=== PATIENT | female | born 1965 | race Caucasian/White ===

== ENCOUNTER 2016-06-22 23:20 | Emergency (ER) | payer BC ==
[~2016-06-22] VITALS: Ht 167.6 cm; Wt 86.2 kg
[2016-06-22 23:33] VITALS: BP 148/55
[2016-06-23] MEDS ORDERED: HYDR-971 PO (00:17)
--- NOTE | 2016-06-23 00:17 | PHYS DOC ---
Past Medical History Past Medical History: Depression, Other Additional Past Medical Histor: EPILIEPSY Past Surgical History: Appendectomy, Cholecystectomy, Tonsillectomy, Other Additional Past Surgical Histo: OOPHORECTOMY Alcohol Use: Occasionally Drug Use: None Adult General Chief Complaint Chief Complaint: ANKLE PROBLEM HPI HPI Patient is a 50 year old female who presents with moderate right ankle pain after falling into a hole today and rolling her ankle. Patient denies any loss of consciousness when she fell. She states she already took hydrocodone and a large bottle of wine prior to coming to the ED. Review of Systems Review of Systems Constitutional: Denies fever or chills [] Eyes: Denies change in visual acuity, redness, or eye pain [] Musculoskeletal: Right ankle pain Integument: Denies rash or skin lesions [] Neurologic: Denies headache, focal weakness or sensory changes [] Endocrine: Denies polyuria or polydipsia [] Physical Exam Physical Exam Constitutional: Well developed, well nourished, no acute distress, non-toxic appearance. [] Skin: See extremity Back: No tenderness, no CVA tenderness. [] Extremities: Right ankle with moderate amount of soft tissue swelling this patient on the right aspect. Tenderness on palpation of the right medial and lateral ankle. Limited range of motion to the right ankle due to pain. +2 right pedal pulse. Cap refill less than 2 seconds the right lower extremity. Sensation intact to the right lower extremity. Neurologic: Alert and oriented X 3, normal motor function, normal sensory function, no focal deficits noted. [] Psychologic: Affect normal, judgement normal, mood normal. [] Current Patient Data Vital Signs Vital Signs Date Time Temp Pulse Resp B/P Pulse Ox O2 Delivery O2 Flow Rate FiO2 06/22/16 23:33 97.7 84 18 97 Room Air 97.7 EKG EKG [] Radiology/Procedures Radiology/Procedures [] Course & Med Decision Making Course & Med Decision Making Pertinent Labs and Imaging studies reviewed. (See chart for details) Patient is in the ED with right ankle pain after falling into a hole and twisting the ankle. Right ankle x-rays and tib-fib x-rays interpreted by Dr. Mclean are positive for tib/fib fractures. Patient was placed in a stirrup splint by the biological lab technician. Neurovascular exam done by me is normal, cap refill less than 2 seconds. Provided crutches in the ED. Instructed to follow-up with orthopedic doctor on Saturday. Dragon Disclaimer Dragon Disclaimer This electronic medical record was generated, in whole or in part, using a voice recognition dictation system. Departure Departure Impression: Primary Impression: Fracture, tibia and fibula Additional Impression: Fall into hole Disposition: 01 HOME, SELF-CARE Condition: STABLE Referrals: TIM CASTANEDA MD (PCP) FIDENCIO BLANTON MD Call his office on Saturday and follow-up. Patient Instructions: Ankle Fracture Additional Instructions: Your x-rays show you fractured you tubular and fibula bones in the ankle. Please do not bear any weight on the right lower extremity. Ice and elevate the extremity. Follow-up with orthopedic doctor provided by calling his office on Saturday. You can follow-up with your own orthopedic doctor if you have one as well. Scripts Hydrocodone/Apap 5-325 (Vian 5-325 Tablet)1 Each Tablet1-2 Tab PO Q4-6HRS #20 TAB Prov:JUAN CARLOS SIMMONS APRN 06/23/16 Problem Qualifiers Primary Impression: Fracture, tibia and fibula Encounter type: initial encounter Fracture type: closed Laterality: right Qualified Code: S82.201A - Unspecified fracture of shaft of right tibia, initial encounter for closed fracture Additional Impression: Fall into hole Encounter type: initial encounter Qualified Code: W17.2XXA - Fall into hole , initial encounter JUAN CARLOS SIMMONS APRN Jun 23, 2016 00:17
--- NOTE | 2016-06-23 08:22 | RAD ---
Indications: Pain after a fall Three-view study of the right ankle: There is a nondisplaced oblique fracture of the distal right fibular metaphysis. There is a transverse fracture of the medial malleolus with mild displacement of 2 mm. The mortise ankle joint is intact otherwise. Plantar spur of the calcaneus is seen. No osteolytic process is seen. Lateral soft tissue swelling is evident. Two-view right tibia and fibula: No additional acute fracture is seen. No osteolytic process is evident. IMPRESSION: Bimalleolar fracture of the right ankle.
[2016-06-28] MEDS ORDERED: PHEN100C PO (13:16)
[2016-06-28] MEDS ORDERED: FLUO40CA9 PO (13:17)
[2016-06-28] MEDS ORDERED: CHOL500016 PO (13:18)
[2016-06-28] MEDS ORDERED: CHOL100099 PO (13:26)
[2016-06-28] MEDS ORDERED: CYAN25008 PO (13:29)
[2016-06-28] MEDS ORDERED: IBUP-1027 PO (13:31)
[2016-06-30] MEDS ORDERED: ASPI325T4 PO (08:09)
== END 2016-06-23 02:11 | disposition home or self-care (01) ==
LOC: ER 23:20
DX: S82.431A Displaced oblique fracture of shaft of right fibula, initial encounter for closed fracture (principal); S82.51XA Displaced fracture of medial malleolus of right tibia, initial encounter for closed fracture; S82.841A Displaced bimalleolar fracture of right lower leg, initial encounter for closed fracture; S82.291A Other fracture of shaft of right tibia, initial encounter for closed fracture; G40.909 Epilepsy, unspecified, not intractable, without status epilepticus; F32.9 Major depressive disorder, single episode, unspecified; W17.2XXA Fall into hole, initial encounter; Y93.89 Activity, other specified; Y92.89 Other specified places as the place of occurrence of the external cause; Y99.8 Other external cause status
CPT/HCPCS: 29515; 73590; 73610; 99284-25

== ENCOUNTER 2016-06-29 07:04 | Observation (INO) | payer BC ==
[2016-06-29] VITALS (13 sets, daily range): BP systolic 131–167; BP diastolic 64–90
[~2016-06-29] VITALS: Ht 167.6 cm; Wt 93.6 kg
[~2016-06-29 07:04] MED LIST: CEFAZOLIN 2GM PREMIX 50 ML IV PRN; CHOL100099 PO; CHOL500016 PO; CYAN25008 PO; FENTANYL PF 100 MCG/2 ML VIAL. IV PRN; FLUO40CA9 PO; HYDR-971 PO; IBUP-1027 PO; IV RINGERS,LACTATED 1000ML 1,000 ML IV SCH; LIDOCAINE 1% 1 ML SYRINGE. ID PRN; ONDANSETRON PF 4 MG/2 ML VIAL. IV PRN; PHEN100C PO; PROCHLORPERAZINE 10 MG/2 ML VIAL. IV PRN
--- NOTE | 2016-06-29 07:49 | RAD ---
Portable chest, 06/29/2016: History: Preop evaluation for ankle surgery The heart size and pulmonary vascularity are normal. The lungs are clear. There is no evidence of pleural fluid. A surgical plate and screws is evident in the lower cervical spine. IMPRESSION: No acute cardiopulmonary abnormality is detected.
[2016-06-29] MEDS: IV RINGERS,LACTATED 1000ML 1,000 ML IV SCH ×2 (08:26→21:50)
[2016-06-29] MEDS ORDERED: MIDAZOLAM HCL/PF 2 MG/2 ML VIAL. ONE (08:29)
[2016-06-29] MEDS ORDERED: LIDOCAINE 2% 100 MG/5 ML SYRINGE. ONE (08:29)
[2016-06-29] MEDS ORDERED: ONDANSETRON PF 4 MG/2 ML VIAL. ONE (08:29)
[2016-06-29] MEDS ORDERED: FENTANYL PF 100 MCG/2 ML VIAL. ONE ×2 (08:29→10:23)
[2016-06-29] MEDS ORDERED: SEVOFLURANE 61 TO 120 MINUTES. IH ONE (08:29)
[2016-06-29] MEDS ORDERED: PROPOFOL 20 ML IV ONE (08:29)
[2016-06-29] MEDS ORDERED: DEXAMETHASONE SOD PHOS 20 MG/5 ML VIAL. ONE (08:29)
[2016-06-29 08:35] LABS: BASO % 1 % (0-3); EOS % 3 % (0-3); HEMATOCRIT 41.2 % (36.0-47.0); HEMOGLOBIN 14.1 g/dL (12.0-15.5); LYMPH # 1.4 x10^3/uL (1.0-4.8); LYMPH % 26 % (24-48); MEAN CORPUSCULAR HEMOGLOBIN 30 pg (25-35); MEAN CORPUSCULAR HGB CONC 34 g/dL (31-37); MEAN CORPUSCULAR VOLUME 88 fL (79-100); MONO % 11 % (0-9); NEUT % 60 % (31-73); PLATELET COUNT 203 x10^3/uL (140-400); RED CELL DISTRIBUTION WIDTH 12.6 % (11.5-14.5); WHITE BLOOD COUNT 5.5 x10^3/uL (4.0-11.0)
[2016-06-29 08:48] LABS: PROTHROMBIN TIME PATIENT 12.8 SEC (11.7-14.0)
[2016-06-29 08:49] LABS: CALCIUM 8.9 mg/dL (8.5-10.1); CREATININE 0.7 mg/dL (0.6-1.0); GFR 89.3; NEG OBC SER NEG; POS OBC SER POS; POTASSIUM 3.9 mmol/L (3.5-5.1)
[2016-06-29 08:57] LABS: ALBUMIN 3.7 g/dL (3.4-5.0); ALBUMIN/GLOBULIN RATIO 1.3 (1.0-1.7); TOTAL BILIRUBIN 0.4 mg/dL (0.2-1.0); TOTAL PROTEIN 6.5 g/dL (6.4-8.2)
[2016-06-29] MEDS ORDERED: BUPIVACAINE-EPI 0.25%-1:200000 MPF 30 ML VIAL. INJ ONE (10:22)
[2016-06-29 10:34] LABS: BILIRUBIN,URINE NEGATIVE (NEG); GLUCOSE,URINE NEGATIVE (NEG); NITRITE,URINE NEGATIVE (NEG); PROTEIN,URINE NEGATIVE (NEG-TRACE); UROBILINOGEN,URINE 0.2 mg/dL (0.2 mg/dL)
[2016-06-29 10:45] LABS: BACTERIA,URINE FEW /HPF (0-FEW); RBC,URINE RARE /HPF (0-2); SQUAMOUS EPITHELIAL CELL,UR FEW /LPF; WBC,URINE RARE /HPF (0-4)
--- NOTE | 2016-06-29 10:59 | EKG ---
[facility] [address] [place] [address] Test Date: 2016-06-29 Test Time: 08:05:21 Pat Name: ANDERS LEUNG Department: Room: Gender: F Pourer: : 1965 Requested By: SUSANNE NEWTON Order Number: [id number] Reading MD: Measurements Intervals [place] Rate: 77 P: 47 NC: 172 QRS: 49 QRSD: 76 T: 36 QT: 390 QTc: 443 Interpretive Statements SINUS RHYTHM NORMAL ECG RI6.01 No previous ECG available for comparison
[2016-06-29] MEDS ORDERED: HYDROCODONE/APAP 7.5/325MG TABLET. PO PRN (12:00)
[2016-06-29] MEDS ORDERED: POLYETHYLENE GLYCOL 3350 17 GM PACKET. PO PRN (12:00)
[2016-06-29] MEDS ORDERED: DEXTROSE 50% 25 GM / 50ML DISP.SYRIN. IV PRN (12:00)
[2016-06-29] MEDS ORDERED: ONDANSETRON PF 4 MG/2 ML VIAL. IV PRN ×2 (12:00→20:00)
[2016-06-29] MEDS: FENTANYL PF 100 MCG/2 ML VIAL. IV PRN ×2 (12:04→12:15)
--- NOTE | 2016-06-29 12:09 | PDOC1 ---
History and Physical Date of Admission Date of Admission DATE: 06/29/16 TIME: 11:52 Identification/Chief Complaint Chief Complaint right ankle pain, fracture Problems: (1) Fracture, tibia and fibula Source Source: Chart review, Patient History of Present Illness History of Present Illness The patient is a 50 year old female who fell into a hole while walking approximately 10 days ago. She has been on dilantin for 35 years due to a previous seizure disorder. She has not had a seizure since she was a child. 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 She has been splinted in a posterior mold splint since being seen in the ER on her day of injury. She reports her pain as an 8/10. The oxycodone she is taking is not helping.She was seen in the office by my partner yesterday, but due to him going out of town he requested that I take care of her fracture. She is neurovascularly intact except for some mild decreased sensation to light touch on the inferior aspect of her foot. Past Medical History CENTRAL NERVOUS SYSTEM: Seizure Endocrine: Osteopenia Past Surgical History Past Surgical History: Appendectomy, Breast Biopsy, Cholecystectomy, , Tonsillectomy, Other (right toe surgery) Family History Family History none pertinent per patient Social History Smoke: No ALCOHOL: none Drugs: None Current Problem List Problems: (1) Fracture, tibia and fibula Current Medications Current Medications Current Medications Ondansetron HCl (Zofran) 4 mg PRN Q6HRS PRN IV NAUSEA/VOMITING; Start 06/29/16 at 07:00; Stop 06/29/16 at 23:00 Fentanyl Citrate (Fentanyl 2ml Vial) 25 mcg PRN Q5MIN PRN IV MILD PAIN; Start 06/29/16 at 07:00; Stop 06/30/16 at 06:59 Fentanyl Citrate (Fentanyl 2ml Vial) 50 mcg PRN Q5MIN PRN IV MODERATE PAIN; Start 06/29/16 at 07:00; Stop 06/29/16 at 23:00 Morphine Sulfate 1 mg 1 mg PRN Q10MIN PRN IV SEVERE PAIN; Start 06/29/16 at 07: 00; Stop 06/29/16 at 23:00 Lactated Ringer's (Iv Lactated Ringers) 1,000 ml @ 0 mls/hr Q0M IV ; Start at 07:00; Stop 06/29/16 at 18:59 Lidocaine HCl 2 ml PRN 1X PRN ID PRIOR TO IV START; Start 06/29/16 at 07:00; Stop 06/29/16 at 23:00 Hydromorphone HCl (Dilaudid) 0.5 mg PRN Q10MIN PRN IV SEV PAIN, Second choice; Start 06/29/16 at 07:00; Stop 06/29/16 at 23:00 Prochlorperazine Edisylate 5 mg 5 mg PACU PRN PRN IV NAUSEA, MRX1; Start at 07:00; Stop 06/29/16 at 23:00 Cefazolin Sodium/ Dextrose 50 ml @ 100 mls/hr 1X PREOP PRN IV PRIOR TO PROCEDURE Last administered on 06/29/16t 10:03; Start 06/29/16 at 06:00; Stop at 18:00 Lactated Ringer's (Iv Lactated Ringers) 1,000 ml @ 75 mls/hr [id number] IV Last administered on 06/29/16 08:26; Start 06/29/16 at 08:30 Sevoflurane (Ultane) 60 ml STK-MED ONCE IH ; Start 06/29/16 at 08:29; Stop 06/29 at 08:30; Status DC Fentanyl Citrate (Fentanyl 2ml Vial) 100 mcg STK-MED ONCE .ROUTE ; Start at 08:29; Stop 06/29/16 at 08:30; Status DC Midazolam HCl 2 mg 2 mg STK-MED ONCE .ROUTE ; Start 06/29/16 at 08:29; Stop at 08:30; Status DC Propofol (Diprivan) 20 ml @ As Directed STK-MED ONCE IV ; Start 06/29/16 at 08: 29; Stop 06/29/16 at 08:30; Status DC Ondansetron HCl (Zofran) 4 mg STK-MED ONCE .ROUTE ; Start 06/29/16 at 08:29; Stop 06/29/16 at 08:30; Status DC Dexamethasone Sodium Phosphate (Decadron) 20 mg STK-MED ONCE .ROUTE ; Start at 08:29; Stop 06/29/16 at 08:30; Status DC Lidocaine HCl (Lidocaine HCl 2% Abboject) 100 mg STK-MED ONCE .ROUTE ; Start at 08:29; Stop 06/29/16 at 08:30; Status DC Fentanyl Citrate (Fentanyl 2ml Vial) 100 mcg STK-MED ONCE .ROUTE ; Start at 10:23; Stop 06/29/16 at 10:24; Status DC Bupivacaine HCl/ Epinephrine Bitart (Sensorcaine-Epi 0.25%-1:102941 Mpf) 30 ml STK-MED ONCE INJ Last administered on 06/29/16t 10:22; Start 06/29/16 at 10:22 ; Stop 06/29/16 at 10:41; Status DC Active Scripts Active Portal 5-325 Tablet (Acetaminophen/Hydrocodone Bitart) 1 Each Tablet 1-2 Tab PO Q4-6HRS Reported Ibuprofen 400 Mg Tablet 2 Mg PO PRN PRN Vitamin B12 (Cyanocobalamin (Vitamin B-12)) 2,500 Mcg Tablet 2,500 Mcg PO DAILY Vitamin D3 (Cholecalciferol (Vitamin D3)) 10,000 Unit Capsule 10,000 Unit PO DAILY Vitamin D3 (Cholecalciferol (Vitamin D3)) 5,000 Unit Tablet 1 Tab PO DAILY Prozac (Fluoxetine Hcl) 40 Mg Capsule 1 Cap PO DAILY Dilantin (Phenytoin Sodium Extended) 100 Mg Capsule 2 Cap PO QHS Allergies Allergies: Coded Allergies: phenobarbital (Verified Adverse Reaction, Intermediate, CONFUSION,MENTAL STATUS CHANGES, 06/29/16) ROS General: No: Appetite, Chills, Fatigue, Malaise, Night Sweats, Other Musculoskeletal: Yes Gait Disturbance, Yes Joint Pain, Yes Joint Swelling Physical Exam General: Oriented X3, Cooperative, No acute distress HEENT: Atraumatic Lungs: Normal air movement Extremities: No clubbing, No cyanosis, No edema, Normal pulses, Other (RLE with swelling and ecchymosis. nvi distally except what was noted above. ttp medial and lateral malleolus. no ttp over the base of the 5th MT. small toe with previous incision, it is medially deviated and deviates the 4th toe. ) Skin: No rashes, No breakdown Neuro: Normal speech Vitals Vitals Vital Signs Date Time Temp Pulse Resp B/P Pulse Ox O2 Delivery O2 Flow Rate FiO2 06/29/16 07:59 98.8 80 16 122/82 96 Room Air 98.8 Labs Labs Laboratory Tests Test 06/29/16 08:06 06/29/16 10:01 White Blood Count 5.5x10^3/uL (4.0-11.0) Red Blood Count 4.70x10^6/uL (3.50-5.40) Hemoglobin 14.1g/dL (12.0-15.5) Hematocrit 41.2% (36.0-47.0) Mean Corpuscular Volume 88fL (79-100) Mean Corpuscular Hemoglobin 30pg (25-35) Mean Corpuscular Hemoglobin Concent 34g/dL (31-37) Red Cell Distribution Width 12.6% (11.5-14.5) Platelet Count 203x10^3/uL (140-400) Neutrophils (%) (Auto) 60% (31-73) Lymphocytes (%) (Auto) 26% (24-48) Monocytes (%) (Auto) 11% (0-9) Eosinophils (%) (Auto) 3% (0-3) Basophils (%) (Auto) 1% (0-3) Neutrophils # (Auto) 3.3x10^3uL (1.8-7.7) Lymphocytes # (Auto) 1.4x10^3/uL (1.0-4.8) Monocytes # (Auto) 0.6x10^3/uL (0.0-1.1) Eosinophils # (Auto) 0.2x10^3/uL (0.0-0.7) Basophils # (Auto) 0.0x10^3/uL (0.0-0.2) Prothrombin Time 12.8SEC (11.7-14.0) Prothromb Time International Ratio 1.0 (0.8-1.1) Activated Partial Thromboplast Time 33SEC (24-38) Sodium Level 142mmol/L (136-145) Potassium Level 3.9mmol/L (3.5-5.1) Chloride Level 106mmol/L (98-107) Carbon Dioxide Level 27mmol/L (21-32) Anion Gap 9 (6-14) Blood Urea Nitrogen 12mg/dL (7-20) Creatinine 0.7mg/dL (0.6-1.0) Estimated GFR (Cockcroft-Gault) 89.3 BUN/Creatinine Ratio 17 (6-20) Glucose Level 95mg/dL (70-99) Calcium Level 8.9mg/dL (8.5-10.1) Total Bilirubin 0.4mg/dL (0.2-1.0) Aspartate Amino Transf (AST/SGOT) 17U/L (15-37) Alanine Aminotransferase (ALT/SGPT) 36U/L (14-59) Alkaline Phosphatase 78U/L (46-116) Total Protein 6.5g/dL (6.4-8.2) Albumin 3.7g/dL (3.4-5.0) Albumin/Globulin Ratio 1.3 (1.0-1.7) Serum Test, Qualitative Negative (NEG) Urine Collection Type U cath Urine Color Straw Urine Clarity Clear Urine pH 6.0 Urine Specific [place] 1.010 Urine Protein Negativemg/dL (NEG-TRACE) Urine Glucose (UA) Negativemg/dL (NEG) Urine Ketones (Stick) Negativemg/dL (NEG) Urine Blood Negative (NEG) Urine Nitrite Negative (NEG) Urine Bilirubin Negative (NEG) Urine Urobilinogen Dipstick 0.2mg/dL (0.2 mg/dL) Urine Leukocyte Esterase Negative (NEG) Urine RBC Rare/HPF (0-2) Urine WBC Rare/HPF (0-4) Urine Squamous Epithelial Cells Few/LPF Urine Bacteria Few/HPF (0-FEW) Laboratory Tests Test 06/29/16 08:06 06/29/16 10:01 White Blood Count 5.5x10^3/uL (4.0-11.0) Red Blood Count 4.70x10^6/uL (3.50-5.40) Hemoglobin 14.1g/dL (12.0-15.5) Hematocrit 41.2% (36.0-47.0) Mean Corpuscular Volume 88fL (79-100) Mean Corpuscular Hemoglobin 30pg (25-35) Mean Corpuscular Hemoglobin Concent 34g/dL (31-37) Red Cell Distribution Width 12.6% (11.5-14.5) Platelet Count 203x10^3/uL (140-400) Neutrophils (%) (Auto) 60% (31-73) Lymphocytes (%) (Auto) 26% (24-48) Monocytes (%) (Auto) 11% (0-9) Eosinophils (%) (Auto) 3% (0-3) Basophils (%) (Auto) 1% (0-3) Neutrophils # (Auto) 3.3x10^3uL (1.8-7.7) Lymphocytes # (Auto) 1.4x10^3/uL (1.0-4.8) Monocytes # (Auto) 0.6x10^3/uL (0.0-1.1) Eosinophils # (Auto) 0.2x10^3/uL (0.0-0.7) Basophils # (Auto) 0.0x10^3/uL (0.0-0.2) Prothrombin Time 12.8SEC (11.7-14.0) Prothromb Time International Ratio 1.0 (0.8-1.1) Activated Partial Thromboplast Time 33SEC (24-38) Sodium Level 142mmol/L (136-145) Potassium Level 3.9mmol/L (3.5-5.1) Chloride Level 106mmol/L (98-107) Carbon Dioxide Level 27mmol/L (21-32) Anion Gap 9 (6-14) Blood Urea Nitrogen 12mg/dL (7-20) Creatinine 0.7mg/dL (0.6-1.0) Estimated GFR (Cockcroft-Gault) 89.3 BUN/Creatinine Ratio 17 (6-20) Glucose Level 95mg/dL (70-99) Calcium Level 8.9mg/dL (8.5-10.1) Total Bilirubin 0.4mg/dL (0.2-1.0) Aspartate Amino Transf (AST/SGOT) 17U/L (15-37) Alanine Aminotransferase (ALT/SGPT) 36U/L (14-59) Alkaline Phosphatase 78U/L (46-116) Total Protein 6.5g/dL (6.4-8.2) Albumin 3.7g/dL (3.4-5.0) Albumin/Globulin Ratio 1.3 (1.0-1.7) Serum Test, Qualitative Negative (NEG) Urine Collection Type U cath Urine Color Straw Urine Clarity Clear Urine pH 6.0 Urine Specific [place] 1.010 Urine Protein Negativemg/dL (NEG-TRACE) Urine Glucose (UA) Negativemg/dL (NEG) Urine Ketones (Stick) Negativemg/dL (NEG) Urine Blood Negative (NEG) Urine Nitrite Negative (NEG) Urine Bilirubin Negative (NEG) Urine Urobilinogen Dipstick 0.2mg/dL (0.2 mg/dL) Urine Leukocyte Esterase Negative (NEG) Urine RBC Rare/HPF (0-2) Urine WBC Rare/HPF (0-4) Urine Squamous Epithelial Cells Few/LPF Urine Bacteria Few/HPF (0-FEW) Images Images Xrays of the right distal tibia and ankle reveal a low transverse distal fibula fracture and medial malleous fracture, minimally displaced. ankle mortise intact. VTE Prophylaxis Ordered VTE Prophylaxis Devices: Yes VTE Pharmacological Prophylaxi: Yes Assessment/Plan Assessment/Plan The patient is a 50 year old female with a right bimalleolar ankle fracture Plan for ORIF later today Patient would like to be admitted overnight for pain control perioperative antibiotics PT/OT: NWB RLE She will be placed in a plaster splint. Ice and elevate Plan for dc home tomorrow. Problem Qualifiers (1) Fracture, tibia and fibula: Encounter type: initial encounter Fracture type: closed Laterality: right Qualified Code: S82.201A - Unspecified fracture of shaft of right tibia, initial encounter for closed fracture SUSANNE NEWTON MD Jun 29, 2016 12:09
[2016-06-29] MEDS: MORPHINE SULFATE 2 MG/ML DISP.SYRIN. IV PRN ×2 (12:16→12:27)
[2016-06-29] MEDS: HYDROMORPHONE 2 MG/ML VIAL. IV PRN ×2 (12:30→12:40)
[2016-06-29] MEDS: HYDROCODONE/APAP 7.5/325MG TABLET. PO PRN ×2 (15:10→21:09)
--- NOTE | 2016-06-29 15:31 | ACF ---
Admission Forms Criteria MUSCULOSKELETAL DISEASE GRG Clinical Indications for Admission to Inpatient Care (Place 'X' for any and all applicable criteria): Hospital admission is needed for appropriate care of the patient because of 1 or more of the following: [X]I. Fracture, dislocation, or other musculoskeletal injury requiring inpatient care(medical) as indicated by 1 or more of the following(4)(5)(6)(7) [ ]a) Vertebral fracture requiring observation for instability or neurologic compromise (8) [ ]b) Compartment syndrome (proven or cannot be ruled out during observation level of care) (9) [ ]c) Limb-threatening injury [X]d) Major injury requiring inpatient stabilization such as traction initiation or external fixation before internal fixation or closure of complex or open fracture [ ]e) Major injury requiring inpatient treatment after emergency or observation level care (as appropriate) [ ]f) Severe pain requiring acute inpatient management [ ]g) Injury with suspicion of abuse or neglect (eg., child, dependent elderly) [ ]II. Newly diagnosed or suspected bone, joint, or orthopedic device infection (e.g., osteomyelitis, septic arthritis) needing 1 or more of the following(1)(2)(3) [ ]a) IV antibiotics that cannot be initiated in other than inpatient setting (e.g., patient too unstable or home infusion not available) [ ]b) Device removal or replacement [ ]c) Bone or soft tissue debridement [ ]d) Joint drainage (drain placement or repetitive aspirations) [ ]III. Severe rheumatologic disease (e.g., systemic lupus erythematosus, rheumatoid arthritis) with complications or comorbidities (Also use Optimal Recovery Care Criteria or General Recovery Criteria as appropriate on the basis of predominant condition), including 1 or more of the following( 10)(11)(12)(13) [ ]a) Severe infection (e.g., SOCIAL MEDIA MARKETING ANALYST infection, sepsis) (14) [ ]b) Respiratory complications, including 1 or more of the following : [ ]i) Pleural effusion with respiratory compromise [ ]ii) Pulmonary hypertension with congestive failure [ ]iii) Respiratory failure [ ]iv) Pulmonary hemorrhage (15) [ ]c) Hematologic disease, including 1 or more of the following: [ ]i) Coagulopathy with bleeding [ ]ii) Thrombosis with hypercoagulable state [ ]iii) Thrombotic thrombocytopenic purpura [ ]d) Cerebritis with seizures, psychosis, or other severe abnormalities [ ]e) Vertebral destruction with monitoring needed for cervical myelopathy& possible respiratory compromise [ ]f) Exacerbation that requires inpatient treatment (e.g., intravenous immunosuppression) (16) [ ]g) Acute renal failure [ ]h) Cerebritis with seizures, psychosis, Altered mental status, or other neurologic abnormalities [ ]i) Pericardial effusion with tamponade [ ]j) Vertebral destruction, with monitoring needed for cervical myelopathy and possible respiratory compromise [ ]IV. Severe vasculitis with complications or comorbidities (Also use Optimal Recovery Care Criteria General Recovery Criteria as appropriate on the basis of predominant condition), including 1 or more of the following(11)(12)(17)(18)(19)(20) [ ]a) Exacerbation that requires inpatient treatment (e.g., intravenous immunosuppression) (19)(21) [ ]b) Pulmonary hemorrhage (15) [ ]c) SOCIAL MEDIA MARKETING ANALYST vasculitis with seizures, psychosis, Altered mental status that is severe or persistent, or other severe abnormalities (22) [ ]d) Cerebral infarction [ ]e) Gastrointestinal ischemia [ ]f) Gangrene or threatened amputation [ ]g) Renal failure (16) [ ]h) Other significant complications of vasculitis ( eg., tissue or organ ischemia, organ dysfunction ) [ ]V. Severe myopathy as indicated by 1 or more of the following (28)(29) [ ]a) New onset of airway compromise or inability to swallow [ ]b) Respiratory deterioration with observation needed for impending respiratory failure [ ]c) Exacerbation that requires inpatient treatment (e.g., intravenous immunosuppression) [ ]. Severe crystal gout (arthropathy) indicated by 1 or more of the following (23)(24) [ ]a) Severe pain requiring acute inpatient management [ ]b) Exacerbation that requires inpatient treatment (e.g., intravenous treatment) [ ]VII.Rhabdomyolysis and 1 or more of the following (25)(26)(27) [ ]a) Acute renal failure [ ]b) Need for intravenous hydration after emergency or observation level care (as appropriate) [ ]c) Inability to maintain oral hydration [ ]d) Change in mental status [ ]e) Electrolyte abnormality that remains after emergency or observation level care (as appropriate) [ ]VIII Post amputation complication, as indicated by ANY ONE of the following [ ]a) Infection [ ]b) Dehiscence [ ]c) Myodesis failure [ ]IX. Severe pain requiring acute inpatient management due to musculoskeletal condition [ ]X. Musculoskeletal Disease and ALL of the following: [ ]a) Symptom or finding for which emergency and observation care have failed or are not considered appropriate (Use General Criteria: Observation Care as appropriate) [ ]b) Presence of ANY ONE of the following [ ]i) A General Admission Criteria [ ]ii) A Pediatric General Admission Criteria The original [facility] [employer] content created by [facility] has been revised. The portions of the content which have been revised are identified through the use of italic text or in bold, and [facility] has neither reviewed nor approved the modified material. All other unmodified content is copyright [facility]. Please see references footnoted in the original [facility] edition 2016 Admission Criteria Met?: Yes ZEUS MCINTYRE Jun 29, 2016 15:31
[2016-06-29] MEDS: CEFAZOLIN 2GM PREMIX 50 ML IV SCH ×2 (17:22→22:21)
[2016-06-29] MEDS ORDERED: ONDANSETRON PF 4 MG/2 ML VIAL. IV ONE (20:00)
[2016-06-29] MEDS ORDERED: METOCLOPRAMIDE HCL 10 MG/2 ML VIAL. IV PRN (20:00)
--- NOTE | 2016-06-29 20:08 | PDOC ---
BRIEF OPERATIVE NOTE Date: Jun 29, 2016 Pre-Op Diagnosis right bimalleolar ankle fracture Post-Op Diagnosis same Procedure Performed ORIF right bimalleolar ankle fracture Surgeon Susanne Newton MD Fly Maker none Anesthesia Type: General Blood Loss 10 cc Specimens Obtained none Findings unstable bimalleolar ankle fracture. very osteopenic bone Complications none Additional Remarks pt was placed in a plaster splint. closed with stella medially 2-0 vicryl, 3-0 monocryl and 3-0 prolene laterally. tournquet time 73 minutes SUSANNE NEWTON MD Jun 29, 2016 20:08
[2016-06-29] MEDS: HYDROMORPHONE 2 MG/ML VIAL. IVP PRN (20:11)
[2016-06-29] MEDS ORDERED: PHENYTOIN SODIUM EXTENDED 100 MG CAPSULE PO SCH (23:00)
[2016-06-30] MEDS: HYDROCODONE/APAP 7.5/325MG TABLET. PO PRN ×4 (01:25→14:18)
[2016-06-30 03:22] VITALS: BP 126/70
[2016-06-30] MEDS: CEFAZOLIN 2GM PREMIX 50 ML IV SCH (04:27)
[2016-06-30] MEDS: HYDROMORPHONE 2 MG/ML VIAL. IVP PRN (04:30)
[2016-06-30 07:00] VITALS: BP 128/75
[2016-06-30] MEDS ORDERED: ASPIRIN 325 MG TABLET PO SCH (08:00)
--- NOTE | 2016-06-30 08:02 | PDOC ---
PROGRESS NOTES Subjective Subjective Problems overnight: the patient had pain overnight from her splint, it was loosened but didnt help. I removed it today and she says it felt better. hydrocodone is working better for her for pain. She states she is moving around well and transferring easily, but is unsure if she wants to go home due to pain. had nausea and vomiting last night, has since resolved. Objective Vital Signs Vital Signs Date Time Temp Pulse Resp B/P Pulse Ox O2 Delivery O2 Flow Rate FiO2 06/30/16 05:44 18 06/30/16 04:55 Room Air 06/30/16 03:22 98.7 80 126/70 99 98.7 06/29/16 12:29 10 Physical Exam RLE nvi distally. moderately swollen, splint removed, heel intact. incisions cdi with stella in place. Labs Laboratory Tests Test 06/29/16 08:06 06/29/16 10:01 White Blood Count 5.5x10^3/uL (4.0-11.0) Red Blood Count 4.70x10^6/uL (3.50-5.40) Hemoglobin 14.1g/dL (12.0-15.5) Hematocrit 41.2% (36.0-47.0) Mean Corpuscular Volume 88fL (79-100) Mean Corpuscular Hemoglobin 30pg (25-35) Mean Corpuscular Hemoglobin Concent 34g/dL (31-37) Red Cell Distribution Width 12.6% (11.5-14.5) Platelet Count 203x10^3/uL (140-400) Neutrophils (%) (Auto) 60% (31-73) Lymphocytes (%) (Auto) 26% (24-48) Monocytes (%) (Auto) 11% (0-9) Eosinophils (%) (Auto) 3% (0-3) Basophils (%) (Auto) 1% (0-3) Neutrophils # (Auto) 3.3x10^3uL (1.8-7.7) Lymphocytes # (Auto) 1.4x10^3/uL (1.0-4.8) Monocytes # (Auto) 0.6x10^3/uL (0.0-1.1) Eosinophils # (Auto) 0.2x10^3/uL (0.0-0.7) Basophils # (Auto) 0.0x10^3/uL (0.0-0.2) Prothrombin Time 12.8SEC (11.7-14.0) Prothromb Time International Ratio 1.0 (0.8-1.1) Activated Partial Thromboplast Time 33SEC (24-38) Nasal Screen MRSA (PCR) Negative (Negative) Sodium Level 142mmol/L (136-145) Potassium Level 3.9mmol/L (3.5-5.1) Chloride Level 106mmol/L (98-107) Carbon Dioxide Level 27mmol/L (21-32) Anion Gap 9 (6-14) Blood Urea Nitrogen 12mg/dL (7-20) Creatinine 0.7mg/dL (0.6-1.0) Estimated GFR (Cockcroft-Gault) 89.3 BUN/Creatinine Ratio 17 (6-20) Glucose Level 95mg/dL (70-99) Hemoglobin A1c 4.7% (4.8-5.6) Calcium Level 8.9mg/dL (8.5-10.1) Total Bilirubin 0.4mg/dL (0.2-1.0) Aspartate Amino Transf (AST/SGOT) 17U/L (15-37) Alanine Aminotransferase (ALT/SGPT) 36U/L (14-59) Alkaline Phosphatase 78U/L (46-116) Total Protein 6.5g/dL (6.4-8.2) Albumin 3.7g/dL (3.4-5.0) Albumin/Globulin Ratio 1.3 (1.0-1.7) Serum Test, Qualitative Negative (NEG) Urine Collection Type U cath Urine Color Straw Urine Clarity Clear Urine pH 6.0 Urine Specific [place] 1.010 Urine Protein Negativemg/dL (NEG-TRACE) Urine Glucose (UA) Negativemg/dL (NEG) Urine Ketones (Stick) Negativemg/dL (NEG) Urine Blood Negative (NEG) Urine Nitrite Negative (NEG) Urine Bilirubin Negative (NEG) Urine Urobilinogen Dipstick 0.2mg/dL (0.2 mg/dL) Urine Leukocyte Esterase Negative (NEG) Urine RBC Rare/HPF (0-2) Urine WBC Rare/HPF (0-4) Urine Squamous Epithelial Cells Few/LPF Urine Bacteria Few/HPF (0-FEW) Laboratory Tests Test 06/29/16 08:06 06/29/16 10:01 White Blood Count 5.5x10^3/uL (4.0-11.0) Red Blood Count 4.70x10^6/uL (3.50-5.40) Hemoglobin 14.1g/dL (12.0-15.5) Hematocrit 41.2% (36.0-47.0) Mean Corpuscular Volume 88fL (79-100) Mean Corpuscular Hemoglobin 30pg (25-35) Mean Corpuscular Hemoglobin Concent 34g/dL (31-37) Red Cell Distribution Width 12.6% (11.5-14.5) Platelet Count 203x10^3/uL (140-400) Neutrophils (%) (Auto) 60% (31-73) Lymphocytes (%) (Auto) 26% (24-48) Monocytes (%) (Auto) 11% (0-9) Eosinophils (%) (Auto) 3% (0-3) Basophils (%) (Auto) 1% (0-3) Neutrophils # (Auto) 3.3x10^3uL (1.8-7.7) Lymphocytes # (Auto) 1.4x10^3/uL (1.0-4.8) Monocytes # (Auto) 0.6x10^3/uL (0.0-1.1) Eosinophils # (Auto) 0.2x10^3/uL (0.0-0.7) Basophils # (Auto) 0.0x10^3/uL (0.0-0.2) Prothrombin Time 12.8SEC (11.7-14.0) Prothromb Time International Ratio 1.0 (0.8-1.1) Activated Partial Thromboplast Time 33SEC (24-38) Nasal Screen MRSA (PCR) Negative (Negative) Sodium Level 142mmol/L (136-145) Potassium Level 3.9mmol/L (3.5-5.1) Chloride Level 106mmol/L (98-107) Carbon Dioxide Level 27mmol/L (21-32) Anion Gap 9 (6-14) Blood Urea Nitrogen 12mg/dL (7-20) Creatinine 0.7mg/dL (0.6-1.0) Estimated GFR (Cockcroft-Gault) 89.3 BUN/Creatinine Ratio 17 (6-20) Glucose Level 95mg/dL (70-99) Hemoglobin A1c 4.7% (4.8-5.6) Calcium Level 8.9mg/dL (8.5-10.1) Total Bilirubin 0.4mg/dL (0.2-1.0) Aspartate Amino Transf (AST/SGOT) 17U/L (15-37) Alanine Aminotransferase (ALT/SGPT) 36U/L (14-59) Alkaline Phosphatase 78U/L (46-116) Total Protein 6.5g/dL (6.4-8.2) Albumin 3.7g/dL (3.4-5.0) Albumin/Globulin Ratio 1.3 (1.0-1.7) Serum Test, Qualitative Negative (NEG) Urine Collection Type U cath Urine Color Straw Urine Clarity Clear Urine pH 6.0 Urine Specific [place] 1.010 Urine Protein Negativemg/dL (NEG-TRACE) Urine Glucose (UA) Negativemg/dL (NEG) Urine Ketones (Stick) Negativemg/dL (NEG) Urine Blood Negative (NEG) Urine Nitrite Negative (NEG) Urine Bilirubin Negative (NEG) Urine Urobilinogen Dipstick 0.2mg/dL (0.2 mg/dL) Urine Leukocyte Esterase Negative (NEG) Urine RBC Rare/HPF (0-2) Urine WBC Rare/HPF (0-4) Urine Squamous Epithelial Cells Few/LPF Urine Bacteria Few/HPF (0-FEW) Imaging post op xrays, hardware in place, reduced fracture, ankle mortise is intact. Assessment Assessment POD# 1, S/P ORIF right ankle fracture. Problems: (1) Fracture, tibia and fibula Plan Plan of Care The patient is having some pain control issues. should be improved after splint removal. continue to ice and elevate. can place dressings/ stockinette on the incisions and apply her boot after she is done icing. PT/OT: abby sierra. dvt ppx, asa 325 daily at home fu 7-10 days for suture/ staple removal. call [phone] to schedule. Problem Qualifiers (1) Fracture, tibia and fibula: Encounter type: initial encounter Fracture type: closed Laterality: right Qualified Code: S82.201A - Unspecified fracture of shaft of right tibia, initial encounter for closed fracture SUSANNE NEWTON MD Jun 30, 2016 08:02
--- NOTE | 2016-06-30 08:04 | DISCH ---
DISCHARGE INSTRUCTIONS Condition on Discharge Condition on Discharge: Stable Activity After Discharge Activity Instructions for Disc: Activity as tolerated Bathing Instructions: Shower-keep dressing dry, No Tub Bath until see Lifting Instructions after Dis: No heavy lifting, No pulling or pushing, Do not lift >10 pounds Driving Instructions after Dis: Do not drive Weight Bearing Status after Di: Non weight bearing Diet after Discharge Diet after Discharge: Regular Wound Incision Care Wound/Incision Care: Ice to area for comfort, Keep wound/cast CDI Contacting the DRStacy after DC Call your doctor for: Fever greater than 100 Follow-Up Follow up with: Khadijah 07/10 or 07/11 .call to schedule SUSANNE NEWTON MD Jun 30, 2016 08:04
[2016-06-30] MEDS ORDERED: ASPI325T4 PO (08:09)
[2016-06-30 11:00] VITALS: BP 123/78
[2016-06-30] MEDS: IV RINGERS,LACTATED 1000ML 1,000 ML IV SCH (11:10)
--- NOTE | 2016-07-01 22:03 | PDOC4 ---
Operative Note Operative Note DATE OF OPERATION: 06/29/2016 PREOPERATIVE DIAGNOSIS: Bimalleolar fracture right ankle ICD10: S82.841A POSTOPERATIVE DIAGNOSIS: same OPERATION PERFORMED: Open reduction and internal fixation of right lateral and medial malleoli fractures, CPT 13681 SURGEON: Susanne Netwon MD [employer]MENT [employer] SPECIALIST: none ANESTHESIA: General ESTIMATED BLOOD LOSS: minimal IMPLANTS: Eden Variax 4 hole distal fibula locking plate, 4.0 mm cannulated screws Total tourniquet time: 73 minutes INDICATION: 50 year old female stepped into a hole sustaining a bimalleolar fracture to the right ankle.She has been splinted for the past week. He had a biimalleolar-equivalent type fracture.After the risks and benefits of surgery were explained, she was taken to surgery for operative stabilization of the fracture today. DESCRIPTION OF PROCEDURE: The patient was identified, marked, and the procedure was reconfirmed by myself prior to taking them to the operating room. IV antibiotics were given preoperatively. The patient was positioned appropriately supine on the operating bed, and a timeout was performed prior to prepping and draping. A non-sterile tourniquet was applied to the right thigh. The leg was prepped and draped in a standard sterile fashion. After exsanguinating the leg with an eschmarch, the tourniquet was inflated to 250 mmHg. First I performed an exam under fluoroscopy, testing the ankle mortise. The ankle was found to be grossly unstable with stress. Then I approached the fibula directly centered on the fracture site with a posterolateral approach longitudinally. Dissection was carried down identifying the proximal portion of the peroneal tendon. I dissected just anterior to that muscle belly and exposed the fibula fracture longitudinally. This was basically a transverse fracture in the distal fibula. The fracture site was debrided of hematoma, and I brought the fracture out to length and held the reduction with AO clamps until I obtained good overall position and mandaen of length both by direct visualization and fluroscopic guidance. I then placed an 4-hole plate across the area. I placed screws proximal to the fracture and filled the locking holes distal to the fracture. The fracture was stabilized at this point and xrays were taken to reveal near anatomic alignment on both AP and Lateral views. The fibula was out to length on the mortise view of the ankle. I performed an anteromedial approach to the ankle joint, and dissected down protecting the saphenous vein and nerve structures anteriorly. I incised the periosteum vertically and entered the ankle joint anteromedially. The transverse medial malleolar fracture was then visualized. I used a periosteal elevator to expose the fracture margins. The medial malleolus fragment was actually decent sized and I placed a k-wire to manipulate it into an anatomically reduced position. It was held there with a bone forceps. Another guidewire was placed posteriorly and divergently. I was then was able to overdrill and stabilize the fracture nicely with two 4.0 cannulated screws of 55 mm length. There was good rotational stability as well. Anatomic reduction was obtained. Overall appearance of the ankle mortise was anatomic at that point. I then irrigated the wounds, closed the deep tissues with 2-0 Vicryl laterally and the skin with 3-0 monocryl and 3-0 prolene. The medial incision was closed with 3-0 monocryl and stella. The incision was covered with sterile dressings, and the patient was placed in plaster cast. The patient tolerated the procedure well. There were no complications. They were taken to recovery in good condition postoperatively. Plan: The patient is to remain non-weightbearing on the RLE. They will follow up in my office in 7-10 days for suture/ staple removal. SUSANNE NEWTON MD Jul 01, 2016 22:03
== END 2016-06-30 14:34 | disposition home or self-care (01) ==
LOC: SURG 07:04 → 4 NORTH 12:20
PROVIDERS: ADMIT Orthopaedic Surgery; ATTEND Orthopaedic Surgery
DX: S82.841A Displaced bimalleolar fracture of right lower leg, initial encounter for closed fracture (principal); G40.909 Epilepsy, unspecified, not intractable, without status epilepticus; W17.89XA Other fall from one level to another, initial encounter; Y93.01 Activity, walking, marching and hiking; Y92.89 Other specified places as the place of occurrence of the external cause; Y99.8 Other external cause status
CPT/HCPCS: 27814; 36415; 71010; 76000; 80053; 81001; 83036; 84703; 85027; 85610; 85730; 86850; 86900; 86901; 87641; 93005; 96365; 96375; 96376; 97116; 97161; 97165; 97535; A4215; C1713; G0378; G0379; J0690; J1100; J1170; J2250; J2270; J2405; J2704; J2765; J3010